=== PATIENT | male | born 1950 ===

== ENCOUNTER 2025-05-28 14:56 | Inpatient (IN) | payer MEDICARE ==
[~2025-05-28] VITALS: Ht 177.8 cm; Wt 81.2 kg
[2025-05-28 15:52] LABS: Source, Urine Foley catheter
[2025-05-28] MEDS ORDERED: NS 1,000 ML IV SCH ×3 (16:05→19:00)
[2025-05-28 16:10] LABS: Bilirubin, Urine Neg (Neg); Color, Urine Brown (P-Yellow); Glucose Qualitative, Urine Neg (Neg); Ketones, Urine 1+ (Neg); Leukocyte Esterase, Urine 3+ (Neg); Protein, Urine 4+ (Neg); Specific Gravity, Urine 1.020 (1.003-1.022); Urobilinogen, Urine NORM (Normal)
[2025-05-28 16:24] LABS: Red Blood Cells, Urine TNTC /hpf (0-2)
[2025-05-28 16:41] LABS: Prostate Specific Antigen 90.300 ng/mL (0.000-4.000)
[2025-05-28] MEDS ORDERED: CefTRIAXone Sodium 2,000 MG in NS 100 ML IV ONE (16:45)
[2025-05-28] MEDS ORDERED: Ondansetron HCl 2 MG / ML 2ML Vial IV PRN (19:00)
[2025-05-28] MEDS ORDERED: FLU VACC TS2025(65UP)/MF59C/PF 45 MCG/0.5 ML SYRINGE IM SCH (19:00)
[2025-05-28 19:48] LABS: CHOL/HDL RATIO 2.6; Cholesterol 128 mg/dL (50-200); HDL Cholesterol 50 mg/dL (>39); LDL/HDL RATIO 1.2; Low Density Lipoprotein Chol 59 mg/dL (0-110); Triglycerides 97 mg/dL (30-160); Very Low Density Lipoprot Chol 19 mg/dL (6-32)
[2025-05-28 20:53] LABS: Anion Gap 10.0 mmol/L (3-11); Blood Urea Nitrogen 124.0 mg/dL (8-24); CO2, Blood 23.0 mmol/L (21-32); Calcium, Blood 8.7 mg/dL (8.5-10.1); Chloride, Blood 107.0 mmol/L (98-108); Creatinine, Blood 5.83 mg/dL (0.60-1.20); Glucose, Blood 110.0 mg/dL (70-99); Magnesium, Blood 3.0 mg/dL (1.6-2.4); Phosphorus, Blood 4.1 mg/dL (2.5-4.9); Potassium, Blood 4.9 mmol/L (3.5-5.5); Sodium, Blood 135.0 mmol/L (136-145)
[2025-05-28] MEDS ORDERED: Lactobacil 2-S.Thermo-Bifido 1 1 Cap PO SCH (21:00)
[2025-05-28 21:34] VITALS: BP 165/90
[2025-05-28] MEDS ORDERED: ACET500 PO (21:44)
[2025-05-28] MEDS ORDERED: LORA10ER (21:46)
[2025-05-28 23:47] VITALS: BP 166/92
[2025-05-29] MEDS ORDERED: BISA5EC PO (01:04)
[2025-05-29 03:12] VITALS: BP 165/94
[2025-05-29 05:19] LABS: BASOPHILS ABSOLUTE AUTO 0.05 K/mm3 (0.00-0.23); BASOPHILS PERCENT AUTO 0 % (0-2); EOSINOPHILS ABSOLUTE AUTO 0.10 K/mm3 (0.00-0.68); EOSINOPHILS PERCENT AUTO 0 % (0-6); Hematocrit 31.6 % (37.0-53.0); Hemoglobin 10.3 g/dL (13.5-17.5); IMMATURE GRAN ABSOLUTE AUTO 0.16 K/mm3 (0.00-0.10); IMMATURE GRAN PERCENT AUTO 1 % (0-1); LYMPHOCYTES ABSOLUTE AUTO 0.47 K/mm3 (0.84-5.20); LYMPHOCYTES PERCENT AUTO 2 % (21-46); MONOCYTES ABSOLUTE AUTO 1.31 K/mm3 (0.16-1.47); MONOCYTES PERCENT AUTO 6 % (4-13); Mean Corpuscular HGB Conc 32.6 g/dL (31.5-36.5); Mean Corpuscular Volume 87 fL (80-100); NEUTROPHILS ABSOLUTE AUTO 21.79 K/mm3 (1.96-9.15); NEUTROPHILS PERCENT AUTO 91 % (41-73); NRBC ABSOLUTE 0.00 K/mm3 (0.00-0.02); NRBC Auto 0.0 /100 WBC (0.0-0.2); Platelet Count 386 K/mm3 (150-400); RDW Coefficient Variation 13.0 % (11.7-14.2); RDW Standard Deviation 42.1 fL (35.1-46.3)
[2025-05-29 05:48] LABS: Alanine Aminotransfer (ALT/SGP 18.0 U/L (12-78); Albumin, Blood 2.3 g/dL (3.4-5.0); Albumin/Globulin Ratio 0.5 (0.8-1.8); Anion Gap 11.0 mmol/L (3-11); Aspartate Aminotrans (AST/SGOT 10.0 U/L (12-37); Bilirubin, Total 0.2 mg/dL (0.1-1.0); Blood Urea Nitrogen 122.0 mg/dL (8-24); CO2, Blood 22.0 mmol/L (21-32); Calcium, Blood 8.7 mg/dL (8.5-10.1); Chloride, Blood 106.0 mmol/L (98-108); Creatinine, Blood 5.7 mg/dL (0.60-1.20); Globulin, Blood 4.7 g/dL (2.2-4.0); Glucose, Blood 124.0 mg/dL (70-99); Magnesium, Blood 3.0 mg/dL (1.6-2.4); Potassium, Blood 5.6 mmol/L (3.5-5.5); Sodium, Blood 133.0 mmol/L (136-145); Total Protein, Blood 7.0 g/dL (6.4-8.2)
[2025-05-29 07:22] VITALS: BP 149/84
--- NOTE | 2025-05-29 07:33 | NUR ---
ASSUMED CARE AT 2126. A/Ox4, PLEASANT. ELEVATED BP, HR 110-117, OTHER VSS ON RA. PT DENIES PAIN, NAUSEA, SOB. BENTON DRAINING BRIGHT RED, CLOTS NOTED. STRICT I/Os MONITORED. PT UP TO RESTROOM WITH FWW AND 1P ASSIST; SMALL AMOUNTS OF WATERY STOOL WITH SEDIMENT. PT REPORTS HE TAKES NO HOME MEDS; OCCASIONAL TYLENOL. SAFETY PRECAUTIONS IN PLACE, CALL LIGHT IN REACH.
[2025-05-29] MEDS ORDERED: NS 1,000 ML IV SCH (11:25)
[2025-05-29 12:35] LABS: Anion Gap 13.0 mmol/L (3-11); Blood Urea Nitrogen 126.0 mg/dL (8-24); CO2, Blood 20.0 mmol/L (21-32); Calcium, Blood 8.6 mg/dL (8.5-10.1); Chloride, Blood 106.0 mmol/L (98-108); Creatinine, Blood 5.75 mg/dL (0.60-1.20); Glucose, Blood 193.0 mg/dL (70-99); Potassium, Blood 5.0 mmol/L (3.5-5.5); Sodium, Blood 134.0 mmol/L (136-145)
[2025-05-29 15:08] VITALS: BP 141/82
[2025-05-29] MEDS ORDERED: CefTRIAXone Sodium 1,000 MG in NS 100 ML IV SCH (18:00)
--- NOTE | 2025-05-29 18:32 | NUR ---
PT ALERT AND ORIENTED X4, S[place], IVF AND IV ANTIBIOTIC, DENEIES PAIN OR SOB. AMBULATES 1 PERSON STANDBY WITH FWW. INDEWLLING URINARY CATHETER DRAINING DARK BLOODY URINE NO CLOTS NOTED THIS SHIFT. PT STATES HAS NOT HAD A NORMAL BM IN THREE WEEKS BUT ALSO HAS ONLY BEEN EATING ENSURE DRINKS DUE TO DECREASE APPETITE. PT HAD MULTIPLE BM'S THIS SHIFT. UROLOGY CONSULT-SEE NOTE. BED ALARM ON, CALL LIGHT IN REACH.
[2025-05-29 19:09] VITALS: BP 149/82
[2025-05-30] VITALS (7 sets, daily range): BP systolic 148–169; BP diastolic 83–91
[2025-05-30 05:22] LABS: Hematocrit 29.4 % (37.0-53.0); Hemoglobin 9.4 g/dL (13.5-17.5); Mean Corpuscular HGB Conc 32.0 g/dL (31.5-36.5); Mean Corpuscular Volume 88 fL (80-100); NRBC ABSOLUTE 0.00 K/mm3 (0.00-0.02); NRBC Auto 0.0 /100 WBC (0.0-0.2); Platelet Count 407 K/mm3 (150-400); RDW Coefficient Variation 12.9 % (11.7-14.2); RDW Standard Deviation 41.8 fL (35.1-46.3)
--- NOTE | 2025-05-30 05:47 | NUR ---
NO ACUTE CHANGES DURING SHIFT. PATIENT ALERT AND ORIENTED X4, ABLE TO MAKE NEEDS KNOWN. PATIENT IS A SBA WITH WALKER TO BATHROOM. PATIENT HAD 3 LOOSE BOWEL MOVEMENTS DURING SHIFT. INDWELLING BENTON IN PLCE-DRAINING DARK RED TO GRAVITY. PATIENT ON IV FLUIDS RUNNING AT 125. BED IN LOW POSITION WITH WHEELS LOCKED. CALL LIGHT WITHIN REACH
[2025-05-30 05:48] LABS: Anion Gap 10.0 mmol/L (3-11); Blood Urea Nitrogen 94.0 mg/dL (8-24); CO2, Blood 22.0 mmol/L (21-32); Calcium, Blood 8.5 mg/dL (8.5-10.1); Chloride, Blood 110.0 mmol/L (98-108); Creatinine, Blood 3.66 mg/dL (0.60-1.20); Glucose, Blood 117.0 mg/dL (70-99); Potassium, Blood 4.6 mmol/L (3.5-5.5); Sodium, Blood 137.0 mmol/L (136-145)
[2025-05-30] MEDS ORDERED: Lidocaine 2% Jelly Uro-Jet UR ONE (15:30)
--- NOTE | 2025-05-30 18:24 | NUR ---
SHIFT SUMMARY- PT CONTINUES TO HAVE HEMATURIA THAT IS CLOTTING IN THE BENTON. BLADDER IRRIGATION STARTED AFTER LARGER BENTON INSERTED. PT CONTINUES TO HAVE CLEAR DIARRHEA. DENIES PAIN. UROLOGY IS FOLLOWING.
[2025-05-30] MEDS ORDERED: Magnesium Citrate 300 ML BTL PO ONE (19:50)
[2025-05-31 03:57] VITALS: BP 162/86
[2025-05-31 07:16] VITALS: BP 163/93
--- NOTE | 2025-05-31 07:42 | NUR ---
A/Ox4. PT DENIES PAIN, SOB, NAUSEA. CONTINUOUS BLADDER IRRIGATION THIS SHIFT, WITH PINK OUTPUT. UP WITH FWW, 1P ASSIST. PHARMACIST DC'D MAG CITRATE DUE TO DEMARIO. SAFETY PRECAUTIONS IN PLACE, CALL LIGHT IN REACH.
[2025-05-31] MEDS ORDERED: Polyethylene Glycol 3350 17 gm PO SCH (09:00)
--- NOTE | 2025-05-31 09:00 | NUR ---
pt resting in bed awake a/ox4, a bit hamilton, pleasant and cooperative with care, follows commands well, denies pain at this time, lungs are clear in upper ware, dim in bases, resp even and unlabored, no cough noted, hrr, no edema noted, ppp+1, cap refill<3 sec, vs stable, afebrile, piv to rfa site is clear and patent, btx4, abd flat soft nontender, is constipated, has 3 way camacho cath for urine, CBI running at this time, urine is watermelon color with occ clots, pt denies any bladder pressure, skin c/w/d, maew, dylan, call light in reach.
[2025-05-31 09:58] LABS: Hematocrit 30.9 % (37.0-53.0); Hemoglobin 9.7 g/dL (13.5-17.5); Mean Corpuscular HGB Conc 31.4 g/dL (31.5-36.5); Mean Corpuscular Volume 91 fL (80-100); NRBC ABSOLUTE 0.00 K/mm3 (0.00-0.02); NRBC Auto 0.0 /100 WBC (0.0-0.2); Platelet Count 436 K/mm3 (150-400); RDW Coefficient Variation 12.8 % (11.7-14.2); RDW Standard Deviation 42.1 fL (35.1-46.3)
[2025-05-31 10:16] LABS: Anion Gap 7.0 mmol/L (3-11); Blood Urea Nitrogen 48.0 mg/dL (8-24); CO2, Blood 26.0 mmol/L (21-32); Calcium, Blood 8.4 mg/dL (8.5-10.1); Chloride, Blood 108.0 mmol/L (98-108); Creatinine, Blood 2.04 mg/dL (0.60-1.20); Glucose, Blood 225.0 mg/dL (70-99); Potassium, Blood 3.9 mmol/L (3.5-5.5); Sodium, Blood 137.0 mmol/L (136-145)
[2025-05-31 11:01] VITALS: BP 158/88
[2025-05-31 15:31] VITALS: BP 159/78
--- NOTE | 2025-05-31 17:51 | NUR ---
continues CBI, continues to be watermellon color, no clots noted throughout the shift, no acute changes, call light in reach.
[2025-05-31 19:32] VITALS: BP 163/81
--- NOTE | 2025-05-31 21:57 | NUR ---
BLADDER IRIGATION CONTINUED, NO BLOACKAGES NOTED, BAG EMPTIED AND OUTPUT SUBMITED
[2025-05-31 23:42] VITALS: BP 168/85
--- NOTE | 2025-06-01 01:07 | NUR ---
BLADDER IRRIGATION FLUSHED TO ASSESS FOR BLOOD CLOTS/ BLOCKAGES
[2025-06-01 03:54] VITALS: BP 155/87
[2025-06-01 05:24] LABS: Hematocrit 30.2 % (37.0-53.0); Hemoglobin 9.5 g/dL (13.5-17.5); Mean Corpuscular HGB Conc 31.5 g/dL (31.5-36.5); Mean Corpuscular Volume 89 fL (80-100); NRBC ABSOLUTE 0.00 K/mm3 (0.00-0.02); NRBC Auto 0.0 /100 WBC (0.0-0.2); Platelet Count 405 K/mm3 (150-400); RDW Coefficient Variation 12.6 % (11.7-14.2); RDW Standard Deviation 41.6 fL (35.1-46.3)
[2025-06-01 05:42] LABS: Anion Gap 9.0 mmol/L (3-11); Blood Urea Nitrogen 38.0 mg/dL (8-24); CO2, Blood 24.0 mmol/L (21-32); Calcium, Blood 8.2 mg/dL (8.5-10.1); Chloride, Blood 107.0 mmol/L (98-108); Creatinine, Blood 2.17 mg/dL (0.60-1.20); Glucose, Blood 130.0 mg/dL (70-99); Potassium, Blood 4.2 mmol/L (3.5-5.5); Sodium, Blood 136.0 mmol/L (136-145)
--- NOTE | 2025-06-01 07:04 | NUR ---
SHIFT SUMMARY PT A&OX4 AND ANSWERS QUESTIONS APPROPRIATELY. PT HAS CONTINUOUS BLADDER IRRIGATION, TUBING FLUSHED PRN TO KEEP FLOW STEADY. VSS, NO COMPLAINTS OF CP/PRESSURE OR SOB. PT RECEIVED SCHEDULED AND PRN MEDICATIONS. NO ACUTE EVENTS DURING SHIFT. PT SPENT MOSTS OF SHIFT IN BED WITH EYES CLOSED AND RESPIRATIONS EVEN AND UNLABORED. PT KEPT IN A POSITION OF SAFETY WITH BED IN LOWEST POSITION, FALL PRECAUTIONS IN PLACE, CALL LIGHT IN REACH.
[2025-06-01 07:15] VITALS: BP 162/89
[2025-06-01 11:22] VITALS: BP 144/80
--- NOTE | 2025-06-01 14:43 | NUR ---
PATIENT CONTINOUS BLADDER IRRIGATION CLAMPED OFF THIS AM DURING ROUNDS WITH PROVIDER. BAG HAS SLIGHT RED COLORED URINE BUT TUBING AT THIS TIME HAS LIGHT YELLOW URINE NOTED. PATIENT SLEEPING AT THIS TIME.
[2025-06-01 15:45] VITALS: BP 155/80
[2025-06-01 17:50] LABS: BASOPHILS ABSOLUTE AUTO 0.06 K/mm3 (0.00-0.23); BASOPHILS PERCENT AUTO 0 % (0-2); EOSINOPHILS ABSOLUTE AUTO 0.43 K/mm3 (0.00-0.68); EOSINOPHILS PERCENT AUTO 1 % (0-6); Hematocrit 27.9 % (37.0-53.0); Hemoglobin 8.9 g/dL (13.5-17.5); IMMATURE GRAN ABSOLUTE AUTO 0.34 K/mm3 (0.00-0.10); IMMATURE GRAN PERCENT AUTO 1 % (0-1); LYMPHOCYTES ABSOLUTE AUTO 1.21 K/mm3 (0.84-5.20); LYMPHOCYTES PERCENT AUTO 4 % (21-46); MONOCYTES ABSOLUTE AUTO 1.93 K/mm3 (0.16-1.47); MONOCYTES PERCENT AUTO 6 % (4-13); Mean Corpuscular HGB Conc 31.9 g/dL (31.5-36.5); Mean Corpuscular Volume 88 fL (80-100); NEUTROPHILS ABSOLUTE AUTO 27.10 K/mm3 (1.96-9.15); NEUTROPHILS PERCENT AUTO 87 % (41-73); NRBC ABSOLUTE 0.00 K/mm3 (0.00-0.02); NRBC Auto 0.0 /100 WBC (0.0-0.2); Platelet Count 389 K/mm3 (150-400); RDW Coefficient Variation 12.6 % (11.7-14.2); RDW Standard Deviation 41.1 fL (35.1-46.3)
--- NOTE | 2025-06-01 18:01 | NUR ---
PATIENT RESTED IN BED THIS SHIFT, AMBULATED TO BATHROOM AND CHAIR TOLERATED. BENTON IRRIGATION STOPPED THIS AM AND PLAN TO MONITOR. MOST OF SHIFT URINE YELLOW WITH SMALL TRACES OF PINKISH COLORED URINE. PATIENT DENIES ANY PAIN OR CONCERNS WITH BNETON. CALL LIGHT WITHIN REACH.
[2025-06-01 20:52] VITALS: BP 136/80
[2025-06-02 00:26] VITALS: BP 128/80
[2025-06-02 03:54] VITALS: BP 125/81
[2025-06-02 04:55] LABS: Anion Gap 10.0 mmol/L (3-11); Blood Urea Nitrogen 38.0 mg/dL (8-24); CO2, Blood 23.0 mmol/L (21-32); Calcium, Blood 8.3 mg/dL (8.5-10.1); Chloride, Blood 106.0 mmol/L (98-108); Creatinine, Blood 2.36 mg/dL (0.60-1.20); Glucose, Blood 120.0 mg/dL (70-99); Potassium, Blood 3.9 mmol/L (3.5-5.5); Sodium, Blood 135.0 mmol/L (136-145)
--- NOTE | 2025-06-02 05:32 | NUR ---
PT AMBULATED TO RESTROOM A FEW TIMES THIS SHIFT. URINE IN BENTON IS THE SAME COLOR RED THAT IT WAS AT THE BEGINNING OF SHIFT. PT REMAINS SINUS TACH BUT IS NOT SYMPTOMATIC. NO ACUTE EVENTS OVERNIGHT.
[2025-06-02 08:13] VITALS: BP 124/76
[2025-06-02 09:17] LABS: Campylobacter Sp Not Detected (NOT DETECT); E. Coli O157 Not Detected (NOT DETECT); Enteroaggregative E. coli-EAEC Not Detected (NOT DETECT); Enteropathogenic E. coli-EPEC Not Detected (NOT DETECT); Enterotoxigenic E. coli-ETEC Not Detected (NOT DETECT); Salmonella Sp Not Detected (NOT DETECT); Shiga Toxin-prod E. coli-STEC Not Detected (NOT DETECT); Shigella/Enteroin E. coli-EIEC Not Detected (NOT DETECT); Vibrio Sp Not Detected (NOT DETECT)
[2025-06-02] MEDS ORDERED: NS 1,000 ML IV SCH (11:20)
[2025-06-02] MEDS ORDERED: N-Acetylcysteine 600 MG CAP PO SCH ×2 (12:00→21:00)
[2025-06-02 12:17] LABS: Source, Urine Clean Catch
[2025-06-02 12:20] LABS: Bilirubin, Urine Neg (Neg); Color, Urine Red (P-Yellow); Glucose Qualitative, Urine 3+ (Neg); Ketones, Urine 1+ (Neg); Leukocyte Esterase, Urine 3+ (Neg); Protein, Urine 4+ (Neg); Specific Gravity, Urine 1.020 (1.003-1.022); Urobilinogen, Urine NORM (Normal)
[2025-06-02 12:35] LABS: Red Blood Cells, Urine TNTC /hpf (0-2); White Blood Cells, Urine TNTC /hpf (0-5)
[2025-06-02] MEDS ORDERED: Darbepoetin (Pharmacy Consult) SC SCH (15:10)
[2025-06-02 16:35] VITALS: BP 138/74
[2025-06-02] MEDS ORDERED: Meropenem 2,000 MG in NS 250 ML IV SCH (17:53)
--- NOTE | 2025-06-02 19:10 | NUR ---
ASSUMED CARE OF PT PT IS A/O X 4 QUIETLY LAYING IN BED, NO C/O PAIN NO DISTRESS. RASH TO ABD AND BACK IS SLIGHTLY RAISED BUT NOT ITCHY. PT IND FEEDING SELF AND CALL LIGHT WITHIN REACH. NEW ORDERS FOR BENTON CHANGE AND NEW SAMPLE. 3 WAY CATH REMOVED WITHOUT INCIDENT. CATH INTACT SMALL BLEEDING NOTED. CATH WAS REPLACED WITH 16F CATH WITHOUT AND ISSUE, PT ERIC WELL. PT TAKEN DOWN STAIR FOR DCT OF ABD, RISKS WERE EXPLAINED TO FAMILY CONCERNING KIDNEY FUNCTION AND CARE WOULD BE ADJUSTED TO PROTECTING KIDNEYS. REPORT NOTED AND MD NOTIFIED OF RUPTURE KIDNEY, PT NPO AND POSSIBLE SX THIS EVENING.
--- NOTE | 2025-06-02 19:16 | NUR ---
DR HEREDIA IN FOR CONSULT.
[2025-06-02 20:15] VITALS: BP 134/79
[2025-06-02] MEDS ORDERED: FentaNYL Citrate 50 MCG/ML 2 ML Injection ONE ×2 (20:46→22:35)
[2025-06-02] MEDS ORDERED: Rocuronium Bromide 10 MG/ML 5ML Injection IV ONE (20:49)
[2025-06-02] MEDS ORDERED: Albuterol 2.5 MG/3 ML VIAL INH PRN (20:55)
[2025-06-02] MEDS ORDERED: FentaNYL Citrate 50 MCG/ML 2 ML Injection IV PRN ×3 (20:55→21:00)
[2025-06-02] MEDS ORDERED: Ondansetron HCl 2 MG / ML 2ML Vial IV PRN (21:00)
[2025-06-02] MEDS ORDERED: HYDROmorphone HCl/Pf 1MG SYR IV PRN (21:00)
[2025-06-02] MEDS ORDERED: Labetalol HCL 5 MG/ML 4ML Injection (Single Dose) IV PRN (21:00)
[2025-06-02] MEDS ORDERED: Phenylephrine HCl 100 MCG/ML-NS 10MLSYR (1MG/10ML) ONE (21:10)
[2025-06-02] MEDS ORDERED: Dexamethasone Sod Phos 10 MG/ML 1ML VIAL ONE (21:21)
[2025-06-02] MEDS ORDERED: Sugammadex Sodium 200 MG/2ML SDV (100 MG/ML) ONE (22:40)
[2025-06-02 23:37] VITALS: BP 137/75
[2025-06-03 04:53] VITALS: BP 128/71
--- NOTE | 2025-06-03 05:18 | NUR ---
PATIENT RECOVERED FROM SURGERY WELL, HAD A SMALL BOWEL MOVEMENT ON THIS SHIFT. 24 HOUR URINE COLLECTION RESTARTED AT 0300, BENTON BAG IS ON ICE. VITALS STABLE. PATIENT IS STILL TACHY ON TELE. ALL OTHER VITALS STABLE.
[2025-06-03 05:26] LABS: BASOPHILS ABSOLUTE AUTO 0.03 K/mm3 (0.00-0.23); BASOPHILS PERCENT AUTO 0 % (0-2); EOSINOPHILS ABSOLUTE AUTO 0.04 K/mm3 (0.00-0.68); EOSINOPHILS PERCENT AUTO 0 % (0-6); Hematocrit 27.9 % (37.0-53.0); Hemoglobin 8.6 g/dL (13.5-17.5); IMMATURE GRAN ABSOLUTE AUTO 0.17 K/mm3 (0.00-0.10); IMMATURE GRAN PERCENT AUTO 1 % (0-1); LYMPHOCYTES ABSOLUTE AUTO 0.47 K/mm3 (0.84-5.20); LYMPHOCYTES PERCENT AUTO 2 % (21-46); MONOCYTES ABSOLUTE AUTO 0.20 K/mm3 (0.16-1.47); MONOCYTES PERCENT AUTO 1 % (4-13); Mean Corpuscular HGB Conc 30.8 g/dL (31.5-36.5); Mean Corpuscular Volume 90 fL (80-100); NEUTROPHILS ABSOLUTE AUTO 20.20 K/mm3 (1.96-9.15); NEUTROPHILS PERCENT AUTO 96 % (41-73); NRBC ABSOLUTE 0.00 K/mm3 (0.00-0.02); NRBC Auto 0.0 /100 WBC (0.0-0.2); Platelet Count 413 K/mm3 (150-400); RDW Coefficient Variation 12.5 % (11.7-14.2); RDW Standard Deviation 41.0 fL (35.1-46.3)
[2025-06-03 05:47] LABS: Albumin, Blood 1.5 g/dL (3.4-5.0); Anion Gap 8 mmol/L (3-11); Blood Urea Nitrogen 33 mg/dL (8-24); CO2, Blood 24 mmol/L (21-32); Calcium, Blood 8.2 mg/dL (8.5-10.1); Chloride, Blood 108 mmol/L (98-108); Creatinine, Blood 1.65 mg/dL (0.60-1.20); Glucose, Blood 180 mg/dL (70-99); Magnesium, Blood 1.7 mg/dL (1.6-2.4); Phosphorus, Blood 4.1 mg/dL (2.5-4.9); Potassium, Blood 4.4 mmol/L (3.5-5.5); Sodium, Blood 136 mmol/L (136-145); Uric Acid, Blood 4.3 mg/dL (3.5-7.2)
[2025-06-03 07:26] VITALS: BP 123/80
[2025-06-03] MEDS ORDERED: NS 250 ML IV PRN ×2 (10:05→23:30)
[2025-06-03 12:30] VITALS: BP 129/72
[2025-06-03 12:31] VITALS: BP 129/72
[2025-06-03 17:43] VITALS: BP 139/78
--- NOTE | 2025-06-03 18:38 | NUR ---
SHIFT SUMMARY PT A&OX4, VSS, RA, ST 102 ON TELE, 1 PA IN ROOM. UP IN CHAIR MOST OF THE SHIFT. Q2 BLADDER FLUSH ORDERED. PT DENIED PAIN. BENTON IN PLACE DRAINING PINK/RED URINE WITH CLOTS, NO S/S OF OBSTRUCTION. PT PLEASANT AND COOPERATIVE WITH CARE, CALL LIGHT IN REACH.
[2025-06-03 21:55] VITALS: BP 145/78
[2025-06-04] VITALS (7 sets, daily range): BP systolic 131–154; BP diastolic 77–83
--- NOTE | 2025-06-04 04:52 | NUR ---
SHIFT SUMMARY 74 YR M ADMITTED ON 05/28/25. FULL CODE. NO ACUTE CHANGES THIS SHIFT. Q2 BLADDER IRRIGATION- 50 ML IN, 30 ML OUT. BENTON IS FLUSHING EASILY AND THE RETURN IS CLEAR. PT HAS NO C/O PAIN OR DISCOMFORT. HE IS A&O X 4 AND ABLE TO MAKE HIS NEEDS KNOWN. BED IN LOW POSITION AND CALL LIGHT IN REACH.
[2025-06-04 06:12] LABS: Hematocrit 27.6 % (37.0-53.0); Hemoglobin 8.6 g/dL (13.5-17.5)
[2025-06-04 06:55] LABS: Albumin, Blood 1.7 g/dL (3.4-5.0); Anion Gap 8 mmol/L (3-11); Blood Urea Nitrogen 35 mg/dL (8-24); CO2, Blood 26 mmol/L (21-32); Calcium, Blood 8.2 mg/dL (8.5-10.1); Chloride, Blood 108 mmol/L (98-108); Creatinine, Blood 1.32 mg/dL (0.60-1.20); Glucose, Blood 124 mg/dL (70-99); Magnesium, Blood 1.9 mg/dL (1.6-2.4); Phosphorus, Blood 2.5 mg/dL (2.5-4.9); Potassium, Blood 4.0 mmol/L (3.5-5.5); Sodium, Blood 138 mmol/L (136-145)
[2025-06-04] MEDS ORDERED: Meropenem 2,000 MG in NS 250 ML IV SCH (08:00)
[2025-06-04] MEDS ORDERED: Potassium Chloride 10 Meq Tablet SA PO SCH (09:00)
--- NOTE | 2025-06-04 19:11 | NUR ---
SHIFT SUMMARY PT A&OX4, VSS, RA, ST ON TELE. BENTON IN PLACE DRAINING PINK URINE WITH RARE CLOT IRRIGATED. NO C/O PAIN, SBA TO BATHROOM FOR BM. PLEASANT AND COOPERATIVE WITH CARE, CALL LIGHT IN REACH.
[2025-06-05 03:35] VITALS: BP 134/86
--- NOTE | 2025-06-05 04:28 | NUR ---
SHIFT SUMMARY NO ACUTE CHANGES THIS SHIFT. BENTON IS PATENT AND STILL DRAINING PINK URINE. PT HAS HAD NO C/O PAIN OR DISCOMFORT THIS SHIFT. SBA TO BATHROOM AND CALLS APPROPRIATELY. PER FORENSIC TOXICOLOGIST PT IS SLIGHTLY TACHY @ 103. PT APPEARS TO HAVE RESTED COMFORTABLY THROUGHOUT THE NIGHT. NO NEW CHANGES TO REPORT. BED IN LOW POSITION AND CALL LIGHT IN REACH.
[2025-06-05 04:58] LABS: Hematocrit 27.2 % (37.0-53.0); Hemoglobin 8.7 g/dL (13.5-17.5)
[2025-06-05 06:32] LABS: Albumin, Blood 1.9 g/dL (3.4-5.0); Anion Gap 10 mmol/L (3-11); Blood Urea Nitrogen 28 mg/dL (8-24); CO2, Blood 24 mmol/L (21-32); Calcium, Blood 8.2 mg/dL (8.5-10.1); Chloride, Blood 107 mmol/L (98-108); Creatinine, Blood 1.30 mg/dL (0.60-1.20); Glucose, Blood 124 mg/dL (70-99); Magnesium, Blood 1.8 mg/dL (1.6-2.4); Phosphorus, Blood 2.2 mg/dL (2.5-4.9); Potassium, Blood 3.9 mmol/L (3.5-5.5); Sodium, Blood 137 mmol/L (136-145)
[2025-06-05] MEDS ORDERED: Sodium Phosphate 10 MM in Dextrose 5% 250 ML IV STA (07:05)
[2025-06-05 07:34] VITALS: BP 124/78
[2025-06-05 11:10] VITALS: BP 123/74
[2025-06-05 16:15] VITALS: BP 139/79
--- NOTE | 2025-06-05 17:22 | NUR ---
PATIENT UP TO CHAIR AND RESTROOM WITH STAND BY ASSIST WITH BENTON BAG. PATIENT STATED THE RASH/HIVES ARE LESS ITCHY WITH BENADRYL AND HOPES TO DISCHARGE IN THE NEXT DAY OR TWO, PATIENT USES CALL LIGHT NEEDED. NO CONCERNS.
[2025-06-05 19:24] VITALS: BP 137/73
[2025-06-06 00:37] VITALS: BP 127/77
[2025-06-06 04:38] VITALS: BP 121/80
[2025-06-06 04:53] LABS: Hematocrit 28.4 % (37.0-53.0); Hemoglobin 9.1 g/dL (13.5-17.5); Mean Corpuscular HGB Conc 32.0 g/dL (31.5-36.5); Mean Corpuscular Volume 87 fL (80-100); NRBC ABSOLUTE 0.00 K/mm3 (0.00-0.02); NRBC Auto 0.0 /100 WBC (0.0-0.2); Platelet Count 500 K/mm3 (150-400); RDW Coefficient Variation 12.4 % (11.7-14.2); RDW Standard Deviation 39.7 fL (35.1-46.3)
--- NOTE | 2025-06-06 04:57 | NUR ---
SHIFT SUMMARY A&OX4. ABLE TO MAKE NEEDS KNOWN. BENADRYL GIVEN FOR RED RASH. PT FEELS THIS IS HELPING. PT WAS ABLE TO SLEEP MOST OF THE NIGHT WITHOUT ANY NEW EVENTS. BENTON CATHETER REMAINS PATENT AND DRAINING TO GRAVITY. CURRENTLY PT IS SLEEPING IN BED AT LOWEST POSITION WITH CALL LIGHT WITHIN REACH.
[2025-06-06 05:32] LABS: Albumin, Blood 1.9 g/dL (3.4-5.0); Anion Gap 9 mmol/L (3-11); Blood Urea Nitrogen 29 mg/dL (8-24); CO2, Blood 26 mmol/L (21-32); Calcium, Blood 8.2 mg/dL (8.5-10.1); Chloride, Blood 106 mmol/L (98-108); Creatinine, Blood 1.68 mg/dL (0.60-1.20); Glucose, Blood 128 mg/dL (70-99); Magnesium, Blood 1.8 mg/dL (1.6-2.4); Phosphorus, Blood 2.8 mg/dL (2.5-4.9); Potassium, Blood 4.0 mmol/L (3.5-5.5); Sodium, Blood 137 mmol/L (136-145)
--- NOTE | 2025-06-06 05:52 | NUR ---
ROUNDED WITH DR. HEREDIA. PLAN IS FOR PT TO FOLLOW UP NEXT WEDNESDAY WITH DR. HEREDIA. VERBAL ORDERS RECEIVED FROM FOR PT TO BE ON 1 L FLUID RESTRICTION.
[2025-06-06 07:37] VITALS: BP 122/75
[2025-06-06 08:51] LABS: Prostate Specific Antigen 39.200 ng/mL (0.000-4.000)
[2025-06-06 15:24] VITALS: BP 130/85
--- NOTE | 2025-06-06 18:46 | NUR ---
PATIENT USES CALL LIGHT NEEDED. STATED FEELING BETTER BUT STILL APPEARS TO BE BLOATED WITH SOME SIDE PAIN.
[2025-06-06 19:53] VITALS: BP 130/76
[2025-06-07] VITALS (8 sets, daily range): BP systolic 115–141; BP diastolic 69–82
[2025-06-07 05:22] LABS: BASOPHILS ABSOLUTE AUTO 0.07 K/mm3 (0.00-0.23); BASOPHILS PERCENT AUTO 0 % (0-2); EOSINOPHILS ABSOLUTE AUTO 1.53 K/mm3 (0.00-0.68); EOSINOPHILS PERCENT AUTO 7 % (0-6); Hematocrit 28.8 % (37.0-53.0); Hemoglobin 9.3 g/dL (13.5-17.5); IMMATURE GRAN ABSOLUTE AUTO 0.41 K/mm3 (0.00-0.10); IMMATURE GRAN PERCENT AUTO 2 % (0-1); LYMPHOCYTES ABSOLUTE AUTO 1.69 K/mm3 (0.84-5.20); LYMPHOCYTES PERCENT AUTO 8 % (21-46); MONOCYTES ABSOLUTE AUTO 1.33 K/mm3 (0.16-1.47); MONOCYTES PERCENT AUTO 6 % (4-13); Mean Corpuscular HGB Conc 32.3 g/dL (31.5-36.5); Mean Corpuscular Volume 88 fL (80-100); NEUTROPHILS ABSOLUTE AUTO 16.92 K/mm3 (1.96-9.15); NEUTROPHILS PERCENT AUTO 77 % (41-73); NRBC ABSOLUTE 0.00 K/mm3 (0.00-0.02); NRBC Auto 0.0 /100 WBC (0.0-0.2); Platelet Count 571 K/mm3 (150-400); RDW Coefficient Variation 12.8 % (11.7-14.2); RDW Standard Deviation 40.6 fL (35.1-46.3)
--- NOTE | 2025-06-07 06:03 | NUR ---
SHIFT SUMMARY NOC PT A/O X 4. PLEASANT AND COOPERATIVE WITH CARE. VSS. NO ACUTE CHANGES TO REPORT. PT ABD STILL DISTENDED, BUT PT HAD NO C/O OF PAIN OR DISCOMFORT WHEN ASSESSED. PT RECEIVED BENADRYL AT BEDTIME FOR RASH AND FOR SLEEP. PT ON TELE SINUS TACH IN LOW 100'S, AND NOTIFIED BY TELE ONE TIME THAT PT HR 130'S WHEN AMBULATING TO BATHROOM. PT ASYMPTOMATIC WHEN ASSESSED. PT HAS BENTON IN PLACE FOR RETENTION. PT EXPECTED TO DISCHARGE HOME TODAY. PT CURRENTLY RESTING WITH BED IN LOWEST POSITION, AND CALL LIGHT WITHIN REACH.
[2025-06-07 06:25] LABS: Albumin, Blood 1.9 g/dL (3.4-5.0); Anion Gap 12 mmol/L (3-11); Blood Urea Nitrogen 49 mg/dL (8-24); CO2, Blood 23 mmol/L (21-32); Calcium, Blood 8.5 mg/dL (8.5-10.1); Chloride, Blood 105 mmol/L (98-108); Creatinine, Blood 3.62 mg/dL (0.60-1.20); Glucose, Blood 144 mg/dL (70-99); Magnesium, Blood 2.1 mg/dL (1.6-2.4); Phosphorus, Blood 4.7 mg/dL (2.5-4.9); Potassium, Blood 4.0 mmol/L (3.5-5.5); Sodium, Blood 136 mmol/L (136-145)
--- NOTE | 2025-06-07 07:33 | NUR ---
PT BLADDER SCANNED DUE TO LOW OUTPUT FROM BENTON AND INCREASED ABD DISTENTION, [address] HEREDIA WAS ROUNDING ON PT AT TIME AN ORDERED LASIX DC AND BUMEX ORDERED DAILY. LOTRISONE CREAM ORDERED FOR RASH. INTERMITTENT IRRIGATION ORDERED AND REPOEAT BLADDER SCAN THAT SHOWED 1700 ML AGAIN. BENTON FOUND NOT TO BE PLACED FAR ENOUGH IN AND NEW BENTON PLACED W/O ISSUE WITH IMMEDIATE RETURN AND CLAMPED TO PREVENT HYPOTENSION.
[2025-06-07] MEDS ORDERED: Bumetanide 0.25 MG/ML 10ML Vial IV SCH (09:00)
--- NOTE | 2025-06-07 18:44 | NUR ---
PATIENT RESTED IN BED MOST OF DAY, UP FOR MEALS. BENTON CHANGED THIS AM AND 24 HOUR URINE STARTED. PATIENT GETTING RELIEF FROM NEW BENTON AND DENIES ANY PAIN AT THIS TIME. ANTISIPATES GOING HOME TOMORROW IF ABLE. CALL LIGHT WITHIN REACH
[2025-06-08 03:59] VITALS: BP 109/75
[2025-06-08 05:10] LABS: BASOPHILS ABSOLUTE AUTO 0.06 K/mm3 (0.00-0.23); BASOPHILS PERCENT AUTO 0 % (0-2); EOSINOPHILS ABSOLUTE AUTO 1.78 K/mm3 (0.00-0.68); EOSINOPHILS PERCENT AUTO 11 % (0-6); Hematocrit 26.3 % (37.0-53.0); Hemoglobin 8.3 g/dL (13.5-17.5); IMMATURE GRAN ABSOLUTE AUTO 0.33 K/mm3 (0.00-0.10); IMMATURE GRAN PERCENT AUTO 2 % (0-1); LYMPHOCYTES ABSOLUTE AUTO 1.69 K/mm3 (0.84-5.20); LYMPHOCYTES PERCENT AUTO 10 % (21-46); MONOCYTES ABSOLUTE AUTO 0.97 K/mm3 (0.16-1.47); MONOCYTES PERCENT AUTO 6 % (4-13); Mean Corpuscular HGB Conc 31.6 g/dL (31.5-36.5); Mean Corpuscular Volume 89 fL (80-100); NEUTROPHILS ABSOLUTE AUTO 11.83 K/mm3 (1.96-9.15); NEUTROPHILS PERCENT AUTO 71 % (41-73); NRBC ABSOLUTE 0.00 K/mm3 (0.00-0.02); NRBC Auto 0.0 /100 WBC (0.0-0.2); Platelet Count 517 K/mm3 (150-400); RDW Coefficient Variation 12.8 % (11.7-14.2); RDW Standard Deviation 41.4 fL (35.1-46.3)
[2025-06-08 05:31] LABS: Albumin, Blood 1.7 g/dL (3.4-5.0); Anion Gap 7 mmol/L (3-11); Blood Urea Nitrogen 37 mg/dL (8-24); CO2, Blood 29 mmol/L (21-32); Calcium, Blood 8.4 mg/dL (8.5-10.1); Chloride, Blood 108 mmol/L (98-108); Creatinine, Blood 1.65 mg/dL (0.60-1.20); Glucose, Blood 135 mg/dL (70-99); Magnesium, Blood 2.1 mg/dL (1.6-2.4); Phosphorus, Blood 3.0 mg/dL (2.5-4.9); Potassium, Blood 3.5 mmol/L (3.5-5.5); Sodium, Blood 140 mmol/L (136-145)
--- NOTE | 2025-06-08 06:06 | NUR ---
SHIFT SUMMARY PT WITH HEMATURIA THROUGH THE NIGHT, INCREASED WITH AMBULATION. A COUPLE OF SMALL CLOTS HAVE PASSED. WHEN PT LYING IN BED URINE IS YELLOW/PINK IN COLOR. P[ER DR HEREDIA, 24 HOUR URINE CANCELLED DUE TO HEMATURIA. PT GIVEN ONLY ICE CHIPS DURING THE NIGHT, EXCPET FOR SIP WITH MEDICATION, SECONDARY TO BEING AT LIMIT OF FLUID RESTRICTION. PT SLEPT INTERMITTENLTY DURING THE NIGHT.
[2025-06-08 07:33] VITALS: BP 111/65
[2025-06-08] MEDS ORDERED: Potassium Chloride 10 Meq Tablet SA PO SCH (09:00)
[2025-06-08 11:54] VITALS: BP 102/60
[2025-06-08] MEDS ORDERED: POTA10T PO (14:49)
[2025-06-08] MEDS ORDERED: BUME2 PO (14:49)
[2025-06-08] MEDS ORDERED: TAMS.4ER PO (14:49)
--- NOTE | 2025-06-08 17:50 | NUR ---
DISCHARGE NOTE PATIENT AND DAUGHTER WERE PRESENT IN ROOM, DISCHARGE INSTRUCTIONS WERE GIVEN VERBALLY AND BY PACKET FORM. MEDICATIONS AND FOLLOW UP APPOINTMENTS WERE DISCUSSED WITH PATIENT AND FAMILY. MEDICATIONS WERE FAXED TO DESIRED PHARMACY. EDUCATION WAS GIVEN TO PATIENT ON ILLNESS AND CATH CARE. PATIENT AND DAUGHTER VERABLIZED UNDERSTANDING, DENIED QESTIONS OR CONCERNS. IV WAS REMOVED. PATIENT WAS DRESSED AND WHEELED OUT BY MEDICAL STAFF.
== END 2025-06-08 16:29 | disposition home health service (06) | DRG 854 ==
LOC: ER 14:56 → MEDS 18:56 → ERHOLD 18:56 → MEDS 21:32
PROVIDERS: Family Medicine; Internal Medicine; Internal Medicine Nephrology; Nurse Practitioner Acute Care; Student in an Organized Health Care Education/Training Program; ADMIT Student in an Organized Health Care Education/Training Program
PROC: 3E03329 Introduction of Other Anti-infective into Peripheral Vein, Percutaneous Approach (ICD-10-PCS; 2025-05-28)
PROC: 0T768DZ Dilation of Right Ureter with Intraluminal Device, Via Natural or Artificial Opening Endoscopic (ICD-10-PCS; principal; 2025-06-03)
PROC: 0T9B70Z Drainage of Bladder with Drainage Device, Via Natural or Artificial Opening (ICD-10-PCS; 2025-06-03)
PROC: BT1DYZZ Fluoroscopy of Right Kidney, Ureter and Bladder using Other Contrast (ICD-10-PCS; 2025-06-03)
DX: A41.9 Sepsis, unspecified organism (principal); E87.1 Hypo-osmolality and hyponatremia; N13.6 Pyonephrosis; E87.20 Acidosis, unspecified; N17.9 Acute kidney failure, unspecified; R65.20 Severe sepsis without septic shock; N28.89 Other specified disorders of kidney and ureter; N40.1 Benign prostatic hyperplasia with lower urinary tract symptoms; R33.8 Other retention of urine; R97.20 Elevated prostate specific antigen [PSA]; N18.9 Chronic kidney disease, unspecified; D63.1 Anemia in chronic kidney disease; K59.00 Constipation, unspecified; R31.0 Gross hematuria; I12.9 Hypertensive chronic kidney disease with stage 1 through stage 4 chronic kidney disease, or unspecified chronic kidney disease; I25.10 Atherosclerotic heart disease of native coronary artery without angina pectoris; R73.9 Hyperglycemia, unspecified; L50.9 Urticaria, unspecified; E86.9 Volume depletion, unspecified; E87.5 Hyperkalemia; E87.70 Fluid overload, unspecified; R60.0 Localized edema
CPT/HCPCS: 36415; 51700; 71260; 74018; 74176; 74177; 80048; 80053; 80061; 80069; 81001; 82533; 82550; 83036; 83605; 83735; 84100; 84145; 84153; 84443; 84550; 85014; 85018; 85025; 85027; 86850; 86900; 86901; 87040; 87086; 87507; 96365; 99285-25; A9270; G0103; J0696; J1100; J2185; J2371; J2704; J3010; J7030; J7050; J7060; Q9967

== ENCOUNTER → 2025-05-28 | Outpatient (CLI) | payer OTHER ==
[~2025-05-28] MED LIST: ACET500 PO; BISA5EC PO; LORA10ER
[2025-05-28 13:37] LABS: BASOPHILS ABSOLUTE AUTO 0.04 K/mm3 (0.00-0.23); BASOPHILS PERCENT AUTO 0 % (0-2); EOSINOPHILS ABSOLUTE AUTO 0.17 K/mm3 (0.00-0.68); EOSINOPHILS PERCENT AUTO 1 % (0-6); Hematocrit 34.5 % (37.0-53.0); Hemoglobin 11.3 g/dL (13.5-17.5); IMMATURE GRAN ABSOLUTE AUTO 0.21 K/mm3 (0.00-0.10); IMMATURE GRAN PERCENT AUTO 1 % (0-1); LYMPHOCYTES ABSOLUTE AUTO 0.63 K/mm3 (0.84-5.20); LYMPHOCYTES PERCENT AUTO 3 % (21-46); MONOCYTES ABSOLUTE AUTO 1.30 K/mm3 (0.16-1.47); MONOCYTES PERCENT AUTO 5 % (4-13); Mean Corpuscular HGB Conc 32.8 g/dL (31.5-36.5); Mean Corpuscular Volume 87 fL (80-100); NEUTROPHILS ABSOLUTE AUTO 22.71 K/mm3 (1.96-9.15); NEUTROPHILS PERCENT AUTO 91 % (41-73); NRBC ABSOLUTE 0.00 K/mm3 (0.00-0.02); NRBC Auto 0.0 /100 WBC (0.0-0.2); Platelet Count 433 K/mm3 (150-400); RDW Coefficient Variation 13.1 % (11.7-14.2); RDW Standard Deviation 41.2 fL (35.1-46.3)
[2025-05-28 14:16] LABS: Alanine Aminotransfer (ALT/SGP 21.0 U/L (12-78); Albumin, Blood 2.8 g/dL (3.4-5.0); Albumin/Globulin Ratio 0.5 (0.8-1.8); Anion Gap 13.0 mmol/L (3-11); Aspartate Aminotrans (AST/SGOT 9.0 U/L (12-37); Bilirubin, Total 0.5 mg/dL (0.1-1.0); Blood Urea Nitrogen 147.0 mg/dL (8-24); CO2, Blood 22.0 mmol/L (21-32); Calcium, Blood 9.9 mg/dL (8.5-10.1); Chloride, Blood 99.0 mmol/L (98-108); Creatinine, Blood 7.68 mg/dL (0.60-1.20); Globulin, Blood 5.8 g/dL (2.2-4.0); Glucose, Blood 148.0 mg/dL (70-99); Potassium, Blood 5.4 mmol/L (3.5-5.5); Sodium, Blood 129.0 mmol/L (136-145); Total Protein, Blood 8.6 g/dL (6.4-8.2)
== END ==
LOC: LAB SHORT 13:13 → LAB 13:13
PROVIDERS: Chiropractor
DX: R82.90 Unspecified abnormal findings in urine (principal); R10.32 Left lower quadrant pain
CPT/HCPCS: 80053; 83690; 85025; 87086